=== PATIENT | female | born 1970 | race Caucasian/White ===

== ENCOUNTER 2021-07-20 08:12 | Inpatient (IN) ==
--- NOTE | 2021-06-23 15:20 | PAT Medication Instructions ---
Medication Instructions Date of Service June 23, 2021 Home Medications acetaminophen 325 mg tablet (Tylenol) 325 - 650 mg PO QID PRN albuterol sulfate 0.63 mg/3 mL solution for nebulization 0.63 mg INHALATION Q4H PRN albuterol sulfate 90 mcg/actuation aerosol inhaler (Ventolin HFA) 2 puff INHALATION Q6H PRN citalopram 40 mg tablet (Celexa) 40 mg PO HS clonazepam 1 mg tablet (Klonopin) 1 mg PO TID dicyclomine 20 mg tablet 40 mg PO Q6H PRN lansoprazole 30 mg capsule,delayed release (Prevacid) 30 mg PO DAILY PRN lidocaine 3 % topical cream 1 applic TOPICAL BID PRN lurasidone 60 mg tablet (Latuda) 60 mg PO HS temazepam 30 mg capsule 30 mg PO HS STOP taking 24 hours before surgery lidocaine 3 % topical cream 1 applic TOPICAL BID PRN DO NOT take the morning of surgery dicyclomine 20 mg tablet 40 mg PO Q6H PRN Take morning of surgery With a small sip of water, OTHERWISE NOTHING TO EAT OR DRINK AFTER MIDNIGHT: acetaminophen 325 mg tablet (Tylenol) 325 - 650 mg PO QID PRN (okay to take up to 4 hours prior to surgery if needed) albuterol sulfate 0.63 mg/3 mL solution for nebulization 0.63 mg INHALATION Q4H PRN (if needed) albuterol sulfate 90 mcg/actuation aerosol inhaler (Ventolin HFA) 2 puff INHALATION Q6H PRN (use if needed; please bring rescue inhaler with you to hospital day of surgery if possible) clonazepam 1 mg tablet (Klonopin) 1 mg PO TID lansoprazole 30 mg capsule,delayed release (Prevacid) 30 mg PO DAILY PRN (if needed) Take evening before surgery acetaminophen 325 mg tablet (Tylenol) 325 - 650 mg PO QID PRN (if needed) albuterol sulfate 0.63 mg/3 mL solution for nebulization 0.63 mg INHALATION Q4H PRN (if needed) albuterol sulfate 90 mcg/actuation aerosol inhaler (Ventolin HFA) 2 puff INHALATION Q6H PRN (if needed) citalopram 40 mg tablet (Celexa) 40 mg PO HS clonazepam 1 mg tablet (Klonopin) 1 mg PO TID dicyclomine 20 mg tablet 40 mg PO Q6H PRN (if needed) lansoprazole 30 mg capsule,delayed release (Prevacid) 30 mg PO DAILY PRN (if needed) lurasidone 60 mg tablet (Latuda) 60 mg PO HS temazepam 30 mg capsule 30 mg PO HS Other Notes If you have any questions please call us at [phone] or [phone] or [phone] or [phone]
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
--- NOTE | 2021-07-20 07:35 | History & Physical Bridge Note ---
Date of Service July 20, 2021 History & Physical Bridge Note I have examined the patient, reviewed the History & Physical and in the interval since the performance of the History & Physical I have noted the following changes of clinical significance: no changes noted
--- NOTE | 2021-07-20 07:36 | History & Physical Report ---
Date of Service July 20, 2021 Assessment & Plan (1) Neurogenic claudication due to lumbar spinal stenosis: Plan: L4-L5 decompression fusion, L5-S1 hardware removal History of Present Illness Chief Complaint: Back and bilateral leg pain back and bilateral leg pain Primary Care Provider: NO PCP This is a 50-year-old female known to myself presents with marked decline in status. The failing course of nonoperative care is here for surgical intervention. Allergies Allergy/AdvReac Type Severity Reaction Status Date / Time latex Allergy Severe Anaphylaxis Verified 06/23/21 13:23 erythromycin base Allergy Intermediate Hives Verified 06/23/21 13:24 Penicillins Allergy Intermediate Hives Verified 06/23/21 13:23 Sulfa (Sulfonamide Allergy Intermediate Hives Verified 06/23/21 13:23 Antibiotics) adhesive Allergy Mild SKIN Verified 06/23/21 13:23 REACTION NSAIDS (Non-Steroidal Allergy Mild TOLD NOT Verified 06/23/21 13:23 Anti-Inflamma TO TAKE D/T CELIAC NARCOTICS AdvReac Intermediate HYPERSENSITIVE Uncoded 07/06/21 12:44 TO NARCOTICS Home Medications Medication Instructions Recorded Confirmed Type acetaminophen 325 mg tablet 325 - 650 mg PO QID PRN 06/23/21 06/23/21 History (Tylenol) albuterol sulfate 0.63 mg/3 mL 0.63 mg INHALATION Q4H PRN 06/23/21 06/23/21 History solution for nebulization albuterol sulfate 90 mcg/actuation 2 puff INHALATION Q6H PRN 06/23/21 06/23/21 History aerosol inhaler (Ventolin HFA) citalopram 40 mg tablet (Celexa) 40 mg PO HS 06/23/21 06/23/21 History clonazepam 1 mg tablet (Klonopin) 1 mg PO TID 06/23/21 06/23/21 History dicyclomine 20 mg tablet 40 mg PO Q6H PRN 06/23/21 06/23/21 History lansoprazole 30 mg capsule,delayed 30 mg PO DAILY PRN 06/23/21 06/23/21 History release (Prevacid) lidocaine 3 % topical cream 1 applic TOPICAL BID PRN 06/23/21 06/23/21 History lurasidone 60 mg tablet (Latuda) 60 mg PO HS 06/23/21 06/23/21 History temazepam 30 mg capsule 30 mg PO HS 06/23/21 06/23/21 History Trileptal 150 mg PO QAM 07/06/21 07/06/21 History Past Med/Surg History Medical History (Updated 07/20/21 @ 07:36 by Jevon Plascencia, ) Anxiety and depression Asthma stable per pt, last rescue inhaler use 1 week ago Bipolar disorder Celiac disease Degenerative disc disease cervical, thoracic and lumbar per pt Deviated septum GERD (gastroesophageal reflux disease) persistent symptoms despite medication of heartburn and sensation of reflux, denies choking or coughing History of cervical cancer s/p hysterectomy 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, none since 2004 History of kidney stones History of rectal cancer surgery History of seizure 2009 SEPSIS (C-DIFF INFECTION) Hx of cervical cancer Hx of Clostridium difficile infection 2009 Hx of endometriosis Hx of pancreatitis several yrs ago IBS (irritable bowel syndrome) Interstitial cystitis Periodontal disease upper dentures-glued in per pt Post traumatic stress disorder Rheumatoid arthritis follows with PCP Spinal stenosis Temporomandibular joint disorder clicking and locking requiring surgical intervention, chronically shifted to the right per pt Surgical History (Updated 07/06/21 @ 12:03 by Greta Mead PA-C) H/O eye surgery GLASS REMOVED FROM EYE H/O knee surgery LEFT KNEE X 2 RT KNEE X 1 H/O oophorectomy History of appendectomy History of bowel resection History of breast biopsy BENIGN History of cholecystectomy History of colonoscopy History of cystoscopy STONE REMOVAL History of esophagogastroduodenoscopy (EGD) History of herniorrhaphy History of hysterectomy History of laparoscopy MULTIPLE TIMES FOR ENDOMETRIOSIS History of lithotripsy History of lumbar fusion History of mandibular surgery History of repair of ACL LEFT History of tooth extraction Family History (Updated 06/23/21 @ 13:40 by Krystin Hankins RN) Brother Family hx of colon cancer Other No family history of adverse response to anesthesia Social History Smoking Status: Current every day smoker Cigarettes Per Day: 10 CIG DAILY; Second Hand Exposure: Yes ( SMOKES); Hx Alcohol Use: Yes Preferred Language: Norwegian [employer] Land[employer] Technician Required: No Beliefs That Will Affect Care: None Current Living Situation: Spouse Feels Safe at Home: Yes Assistive Devices: Denture - Upper, Glasses and Nebulizer Physical Exam Physical Exam: Patient is alert and oriented Heart regular rate and rhythm Lungs clear
[~2021-07-20 08:12] MED LIST: ACETAMINOPHEN 500 MG TAB PO SCH; BUPIVACAINE 0.5 % 5 MG/1 ML MPF 30ML VIAL ONE; CLINDAMYCIN 600 MG/54 ML BAG IV SCH; CeleBREX 200 MG CAP PO SCH; DEXAMETHASONE SOD INJ 4 MG/ML VIAL ONE; EPINEPHrine INJ 1 MG/ML AMP ONE; GABAPENTIN 900 MG DOSE PO SCH; KETAMINE 50 MG/5 ML SYRINGE ONE; LR 15ML/HR IV SCH; MIDAZOLAM HCL 1 MG/ML 2ML VIAL ONE; ONDANSETRON INJ 2 MG/ML 2 ML VIAL ONE; ROCURONIUM BROMIDE 10 MG/ML 5 ML VIAL IV ONE; fentaNYL citrate 100 MCG/2 ML VIAL ONE
[2021-07-20] MEDS ORDERED: PROMETHAZINE HCL 12.5 MG in SODIUM CHLORIDE 0.9% 50 ML IV PRN ×2 (09:13→14:00)
[2021-07-20] MEDS ORDERED: ePHEDrine sulfate 50 MG/ML AMP IV PRN (09:13)
[2021-07-20] MEDS ORDERED: HYDROmorphone INJ 1 MG/ML SYRINGE IV PRN ×2 (09:13→14:00)
[2021-07-20] MEDS ORDERED: ONDANSETRON INJ 2 MG/ML 2 ML VIAL IV PRN ×2 (09:13→14:00)
[2021-07-20] MEDS ORDERED: ATROPINE SULFATE 0.1 MG/ML 10ML SYR IV PRN (09:13)
[2021-07-20] MEDS ORDERED: MIDAZOLAM HCL 1 MG/ML 2ML VIAL ONE (09:34)
[2021-07-20] MEDS ORDERED: FAMOTIDINE/PF 20 MG/2 ML VIAL IV ONE (09:52)
[2021-07-20] MEDS ORDERED: FLOSEAL HEMOSTATIC MATRIX 10ML TOP ONE (10:13)
[2021-07-20] MEDS ORDERED: HYDROmorphone INJ 2 MG/ML SYR/VIAL ONE (10:43)
[2021-07-20] MEDS ORDERED: NEOSTIGMINE METHYLSULFATE 1 MG/ML 10ML VIAL ONE (11:01)
[2021-07-20] MEDS ORDERED: GLYCOPYRROLATE 0.2 MG/ML VIAL ONE (11:01)
[2021-07-20] MEDS ORDERED: SURGICEL ABSORB HEMOSTAT 2IN X 14IN TOP ONE (11:02)
--- NOTE | 2021-07-20 11:12 | Operative Report ---
Post Operative Report Pre & Post Diagnosis Operation Date: 07/20/21 09:10 Pre-Op Diagnosis: Radiculopathy, Lumbar Region Post-Op Diagnosis: Radiculopathy, Lumbar Region I identified the patient and participated in the time-out.: Yes Procedure Operation Date: 07/20/21 09:10 Actual Procedures #1 removal of posterior instrumentation L5-S1. #2 exploration of fusion L5-S1. #3 lumbar decompression with bilateral medial facetectomies and foraminotomies L3-L4 L4-5. #4 posterior spinal fusion L4-5. #5 placement posterior instrumentation L4-L5. #6 interbody fusion L4-L5. #7 placement of peek cage 14 x 22 mm at L4-L5. #8 placement of locally harvested morselized autograft in the posterior lateral gutters. #9 placement infuse collagen sponge bone mass graft in the posterior gutters and I factor in the interbody space. Surgeon Jevon Plascencia, DO Quill Machine Tender Radha Delacruz Estimated Blood Loss 150 Findings See Below The patient is 5 foot 1 inches tall weighing over 86 kg with a BMI in excess of 36. The patient's body habitus did contribute to significant technical difficulty required deepest retractors longus instruments in order to perform her procedure. This at least 50% increase to the operative time. Specimens None Indications This is a 50-year-old female who presents above-mentioned diagnosis after failed course of nonoperative care is here for the above-mentioned procedure. Description of Procedure Patient was met with identified informed consent obtained. Patient was then taken to the operative suite underwent ablation placed in a prone position the Mk table atop the Deni frame. All bony prominences well-padded eyes inspected to ensure no external pressure placed upon the. This point the lumbar spine was prepped and draped in normal sterile fashion. Sharp dissection with the assistance of Bovie cautery was performed down to and exposing the lamina and transverse processes of L4 and instrumentation at L5 5 and S1 bilaterally. And then proceeded move the hardware bilaterally explore the fusion mass noting it to be mature and intact. Then performed a complete laminectomy of L4 partial laminectomy of L3 including bilateral medial facetectomies and foraminotomies addressing severe spinal stenosis. Pedicle screws were then placed in L4 and L5 bilaterally with assistance of fluoroscopy and the properly sized nathaniel placed. By way of a transforaminal approach on the right a complete discectomy of L4-5 was performed endplates curetted to subcortical bleeding bone and a 14 x 22 mm peek cage filled with I factor tapped in position. The rods were then compressed locked into final position bilaterally. The transverse processes of L4 and L5 burred to subcortical bleeding bone and infuse collagen sponge, master graft locally harvested morselized autograft placed in the posterior gutters. 15 round ROSE drain inserted. The incision was then closed with 1 Vicryl in the fascia 2-0 Vicryl subcutaneously and 4 Monocryl for final skin closure. Steri- Strip sterile dressings placed. Patient waken taken PACU stable condition. Please note spinal cord monitoring was utilized at the procedure no changes noted. Lastly Radha Delacruz was present at the entire surgery involved the patient positioning complex portions of the surgery and final skin closure. I attest to the content of the Intraoperative Record and any orders documented therein. Any exceptions are noted below.
--- NOTE | 2021-07-20 11:29 | Fluoroscopy Report ---
FL lumbar spine 2-3V CLINICAL HISTORY: L4-L5 DECOMPRESSION COMPARISON STUDY: Lumbar spine fluoroscopic images August 07, 2011. FLUOROSCOPY TIME: 12 seconds. FLUOROSCOPIC IMAGES: 3 FINDINGS: The previous hardware L5-S1 was removed. L5-S1 discectomy is noted. Interval L4-L5 discecto my, posterior decompression and bilateral pedicle screw fusion is noted. Hardware is intact. The surg miquel was aware of the linear radiodensity within the operative bed. IMPRESSION: Fluoroscopy provided during hardware removal and interval L4-L5 discectomy, posterior de compression and bilateral pedicle screw fusion. ACT 112: Negative or not required by law. Electronically signed by: Van Daly M.D. 07/20/2021 11:28 AM
[2021-07-20] MEDS: fentaNYL citrate 100 MCG/2 ML VIAL IV PRN ×2 (11:43→12:25)
--- NOTE | 2021-07-20 13:06 | Anesthesiology Progress Note ---
Date of Service July 20, 2021 Anesthesia Post Procedure Vital Signs Vital Signs: Temp Pulse Pulse Resp BP Pulse Ox 07/20/21 13:00 68 12 101/63 96 07/20/21 12:50 36.5 C 69 14 105/61 97 07/20/21 12:40 90 14 111/84 97 07/20/21 12:30 69 12 112/57 L 92 07/20/21 12:20 73 15 112/76 98 07/20/21 12:10 69 15 119/65 100 07/20/21 12:00 69 18 127/66 99 07/20/21 11:50 75 15 121/65 98 07/20/21 11:40 77 16 127/75 100 07/20/21 11:30 36.1 C L 93 H 17 126/75 100 07/20/21 08:35 36.9 C 89 20 139/90 98 Pain Intensity Medial Back: Pain Intensity: 7 Transfer of Care Handoff Completed per policy Notes Mental Status: alert / awake / arousable and participated in evaluation Patient Amnestic to Procedure: Yes Nausea / Vomiting: adequately controlled Pain: adequately controlled Airway Patency, RR, SpO2: stable & adequate BP & HR: stable & adequate Hydration State: stable & adequate Anesthetic Complications: no major complications apparent and Pt Satisfied with anesthetic care
[2021-07-20] MEDS ORDERED: LORazepam 0.5 MG TAB PO PRN (14:00)
[2021-07-20] MEDS ORDERED: DICYCLOMINE HCL 20 MG TAB PO PRN (14:00)
[2021-07-20] MEDS ORDERED: LORazepam 0.5 MG/1 ML VIAL IV PRN (14:00)
[2021-07-20] MEDS ORDERED: ACETAMINOPHEN 1,000 MG/100 ML VIAL IV PRN (14:00)
[2021-07-20] MEDS ORDERED: MAGNESIUM HYDROXIDE SUSP 30 ML UDC PO PRN (14:00)
[2021-07-20] MEDS ORDERED: DO NOT ADMINISTER FLU VACCINE PRN (14:00)
[2021-07-20] MEDS ORDERED: hydrOXYzine HCl 25 MG TAB PO PRN (14:00)
[2021-07-20] MEDS ORDERED: ALBUTEROL HFA 8 GM INHALER INH PRN (14:00)
[2021-07-20] MEDS ORDERED: bisacodyL 10 MG SUPP PR PRN (14:00)
[2021-07-20] MEDS ORDERED: traMADol HCL 50 MG TABLET PO PRN (14:00)
[2021-07-20] MEDS ORDERED: ALUMINUM/MAGNESIUM SUSP 30 ML UDC PO PRN (14:00)
[2021-07-20] MEDS ORDERED: DO NOT ADMINISTER PNEUMOCOCCAL VACCINE PRN (14:00)
[2021-07-20] MEDS ORDERED: METOCLOPRAMIDE HCL INJ 5 MG/ML 2 ML VIAL IV PRN (14:00)
[2021-07-20] MEDS ORDERED: FAMOTIDINE 20 MG TAB PO PRN (14:00)
[2021-07-20] MEDS ORDERED: NALOXONE HCL 0.4 MG/1 ML VIAL/CARP IV PRN (14:00)
[2021-07-20] MEDS ORDERED: SOD PHOSPHATE/SOD BIPHOSPHATE ENEMA 132 ML BTL PR PRN (14:00)
[2021-07-20] MEDS ORDERED: ALBUTEROL 0.5% NEB SOLN 2.5 MG/0.5 ML VIAL INH PRN (14:38)
[2021-07-20] MEDS ORDERED: LIDOCAINE 4% CREAM 15 GM TUBE EXT PRN (14:39)
[2021-07-20] MEDS: clonazePAM 1 MG TAB PO SCH ×2 (14:45→20:25)
--- NOTE | 2021-07-20 14:45 | Hospitalist Consultation ---
Date of Consultation July 20, 2021 Assessment & Plan (1) Neurogenic claudication due to lumbar spinal stenosis: s/p L4-5 decompression and fusion with removal of hardware of previous surgery L5-S1 (2) Asthma: Patient's asthma is stable we will continue as needed albuterol (3) Bipolar disorder: For her bipolar disorder she takes Alexza 40 at bedtime clonazepam 1 3 times daily we will use this with caution in the perioperative period Latuda 60 at bedtime medazepam 30 at bedtime and Trileptal 150 every morning. There is some notation that years ago in the septic episode she may have had a seizure bu t this has not been corroborated to continue with seizure disorder as part of her medical problems (4) GERD (gastroesophageal reflux disease): Patient continues on Prevacid for PPI (5) DVT prophylaxis: DVT preventions were SCDs History of Present Illness Attending Physician: Jevon Plascencia, History of Present Illness 80-year-old female had back surgery due to intractable back pain L4-[address] Plascencia on 07/20/2021. Previously having L5-S1 surgery and she had hardware removed and that site for a more comprehensive surgical configuration. She is given medical clearance by primary care physician she typically has some challenges with mental health issues takes medications for asthma. Allergies Allergy/AdvReac Type Severity Reaction Status Date / Time latex Allergy Severe Anaphylaxis Verified 07/20/21 08:31 erythromycin base Allergy Intermediate Hives Verified 07/20/21 08:31 Penicillins Allergy Intermediate Hives Verified 07/20/21 08:31 Sulfa (Sulfonamide Allergy Intermediate Hives Verified 07/20/21 08:31 Antibiotics) adhesive Allergy Mild SKIN Verified 07/20/21 08:31 REACTION NSAIDS (Non-Steroidal Allergy Mild TOLD NOT Verified 07/20/21 08:31 Anti-Inflamma TO TAKE D/T CELIAC NARCOTICS AdvReac Intermediate HYPERSENSITIVE Uncoded 07/20/21 08:31 TO NARCOTICS Home Medications Medication Instructions Recorded Confirmed Type acetaminophen 325 mg tablet 325 - 650 mg PO QID PRN 06/23/21 07/20/21 History (Tylenol) albuterol sulfate 0.63 mg/3 mL 0.63 mg INHALATION Q4H PRN 06/23/21 07/20/21 History solution for nebulization albuterol sulfate 90 mcg/actuation 2 puff INHALATION Q6H PRN 06/23/21 07/20/21 History aerosol inhaler (Ventolin HFA) citalopram 40 mg tablet (Celexa) 40 mg PO HS 06/23/21 07/20/21 History clonazepam 1 mg tablet (Klonopin) 1 mg PO TID 06/23/21 07/20/21 History dicyclomine 20 mg tablet 40 mg PO Q6H PRN 06/23/21 07/20/21 History lansoprazole 30 mg capsule,delayed 30 mg PO DAILY PRN 06/23/21 07/20/21 History release (Prevacid) lidocaine 3 % topical cream 1 applic TOPICAL BID PRN 06/23/21 07/20/21 History lurasidone 60 mg tablet (Latuda) 60 mg PO HS 06/23/21 07/20/21 History temazepam 30 mg capsule 30 mg PO HS 06/23/21 07/20/21 History Trileptal 150 mg PO QAM 07/06/21 07/20/21 History Patient History Medical History (Updated 07/20/21 @ 14:44 by Antonino Cruz MD) Anxiety and depression Asthma stable per pt, last rescue inhaler use 1 week ago Bipolar disorder Celiac disease Degenerative disc disease cervical, thoracic and lumbar per pt Deviated septum GERD (gastroesophageal reflux disease) persistent symptoms despite medication of heartburn and sensation of reflux, denies choking or coughing History of cervical cancer s/p hysterectomy 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, none since 2004 History of kidney stones History of rectal cancer surgery History of seizure 2009 SEPSIS (C-DIFF INFECTION) Hx of cervical cancer Hx of Clostridium difficile infection 2009 Hx of endometriosis Hx of pancreatitis several yrs ago IBS (irritable bowel syndrome) Interstitial cystitis Periodontal disease upper dentures-glued in per pt Post traumatic stress disorder Rheumatoid arthritis follows with PCP Spinal stenosis Temporomandibular joint disorder clicking and locking requiring surgical intervention, chronically shifted to the right per pt Surgical History H/O eye surgery GLASS REMOVED FROM EYE H/O knee surgery LEFT KNEE X 2 RT KNEE X 1 H/O oophorectomy History of appendectomy History of bowel resection History of breast biopsy BENIGN History of cholecystectomy History of colonoscopy History of cystoscopy STONE REMOVAL History of esophagogastroduodenoscopy (EGD) History of herniorrhaphy History of hysterectomy History of laparoscopy MULTIPLE TIMES FOR ENDOMETRIOSIS History of lithotripsy History of lumbar fusion History of mandibular surgery History of repair of ACL LEFT History of tooth extraction Family History (Updated 06/23/21 @ 13:40 by Krystin Hankins RN) Brother Family hx of colon cancer Other No family history of adverse response to anesthesia Social History Smoking Status: Current every day smoker Cigarettes Per Day: 10 CIG DAILY; Second Hand Exposure: Yes ( SMOKES); Do You Dip or Chew Tobacco: No; Hx Alcohol Use: Yes Preferred Language: [employer] [employer] Required: No Beliefs That Will Affect Care: None Current Living Situation: Spouse Feels Safe at Home: Yes Safety Concerns: Feels Safe At This Time Assistive Devices: Denture - Upper Review of Systems Review of Systems: Mild distress and fatigue no headache, no visual changes no speech or swallowing issues no chest pain, pressure or palpitations no shortness of breath, cough or wheezes no abdominal pain, nausea or vomiting, diarrhea or constipation no dysuria, hematuria or frequency no focal joint pain or swelling no back pain, CVA tenderness or radicular pain no bruising, bleeding or rashes no focal signs of weakness or numbness or altered sensation no complaints of anxiety or depression.. Physical Exam Physical Exam: The patient appeared well nourished and normally developed. Vital signs as documented. Head exam is normocephalic atraumatic Neck is without JVD, thyromegaly, or carotid bruits. Lungs are clear to auscultation, no focal loss of breath sounds Cardiac exam, Rhythm is regular.. No murmurs, rubs or gallops. Abdominal exam reveals normal bowel sounds, soft non tender, no masses Extremities are nonedematous and both pedal pulses are present Neurologic exam is alert and oriented, no focal loss of strength or sensation Skin is without bruises or rashes Psychologically is without concerns for anxiety or depression.. Results & Data Results & Data ([facility]) Vital Signs (Past 12 Hours) Vital Signs Temp Pulse Pulse Resp BP Pulse Ox 07/20/21 14:10 98.2 F 74 16 103/64 98 07/20/21 13:35 98.6 F 75 14 131/79 100 07/20/21 13:25 97.5 F L 72 12 110/63 95 07/20/21 13:10 97.5 F L 86 18 117/69 99 07/20/21 13:00 68 12 101/63 96 07/20/21 12:50 97.7 F 69 14 105/61 97 07/20/21 12:40 90 14 111/84 97 07/20/21 12:30 69 12 112/57 L 92 07/20/21 12:20 73 15 112/76 98 07/20/21 12:10 69 15 119/65 100 07/20/21 12:00 69 18 127/66 99 07/20/21 11:50 75 15 121/65 98 07/20/21 11:40 77 16 127/75 100 07/20/21 11:30 97.0 F L 93 H 17 126/75 100 07/20/21 08:35 98.4 F 89 20 139/90 98 PG Care Time/CCT Total # of Minutes Spent Total Time Spent with Patient: Total time spent is greater than 50% in coordination of care (as documented) at patient's floor/unit and/or counseling patient: Coding Level of Care Code 78218 Inpt Consult Level 3 Diagnoses Asthma J45.909 Bipolar disorder F31.9 Neurogenic claudication due to lumbar spinal stenosis M48.062 GERD (gastroesophageal reflux disease) K21.9 DVT prophylaxis Z29.9
[2021-07-20] MEDS: LACTATED RINGER'S 1,000 ML IV SCH (15:50)
[2021-07-20] MEDS: diphenhydrAMINE Capsule 25 MG CAP PO PRN (18:29)
[2021-07-20] MEDS: ONDANSETRON 4 MG OD TAB PO PRN (18:43)
[2021-07-20] MEDS: CLINDAMYCIN 600 MG in DEXTROSE 5% 50 ML IV SCH (18:46)
[2021-07-20] MEDS: HYDROmorphone INJ 0.5 MG/0.5 ML SYR IV PRN (18:49)
[2021-07-20] MEDS: ACETAMINOPHEN 500 MG TAB PO PRN (20:18)
[2021-07-20] MEDS: CITALOPRAM 40 MG TAB PO SCH (20:20)
[2021-07-20] MEDS: LANSOPRAZOLE 30 MG SOLTAB PO PRN (20:25)
[2021-07-20] MEDS: DOCUSATE SODIUM/SENNA 50/8.6MG TAB PO SCH (20:26)
[2021-07-20] MEDS: TEMAZEPAM 15 MG CAPSULE PO SCH (20:28)
[2021-07-21] MEDS: LACTATED RINGER'S 1,000 ML IV SCH (02:06)
[2021-07-21] MEDS: CLINDAMYCIN 600 MG in DEXTROSE 5% 50 ML IV SCH (02:07)
[2021-07-21] MEDS: HYDROmorphone INJ 0.5 MG/0.5 ML SYR IV PRN (05:42)
[2021-07-21] MEDS: POLYETHYLENE (MIRALAX) 17 GM PACK PO SCH ×5 (05:42→23:57)
[2021-07-21] MEDS: ONDANSETRON 4 MG OD TAB PO PRN ×2 (05:48→12:17)
[2021-07-21 06:43] LABS: Eosinophils # (auto) 0.01 K/uL (0-0.5); Eosinophils % (auto) 0.1 %; Hematocrit (blood only) 37.1 % (37-47); Hemoglobin 11.7 g/dL (12.0-16.0); Immature Granulocytes # (auto) 0.02 K/uL (0.00-0.02); Immature Granulocytes % (auto) 0.2 %; Lymphocytes # (auto) 0.76 K/uL (1.2-3.4); Mean Corpuscular Hemoglobin 28.3 pg (25-34); Mean Corpuscular Hgb Conc 31.5 g/dL (32-36); Mean Corpuscular Volume 89.6 fL (80-100); Mean Platelet Volume 9.5 fL (7.4-10.4); Monocytes # (auto) 0.78 K/uL (0.11-0.59); Monocytes % (auto) 8.2 %; Neutrophils % (auto) 83.5 %; Platelet Count 299 K/uL (130-400); RDW Coefficient of Variation 14.1 % (11.5-14.5); RDW Standard Deviation 46.7 fL (36.4-46.3); Red Blood Count 4.14 M/uL (4.2-5.4); White Blood Count 9.47 K/uL (4.8-10.8)
[2021-07-21 07:07] LABS: BUN Creatinine Ratio 10.7 (10-20); Calcium 8.7 mg/dl (8.5-10.1); Creatinine Clr Calc Pharmacy 89.6 ml/min; Est GFR (African American) 107.7 ml/min; Est GFR (Non-African American) 92.9 ml/min; Potassium 4.3 mmol/L (3.5-5.1)
--- NOTE | 2021-07-21 07:34 | Hospitalist Progress Note ---
Date of Service July 21, 2021 Assessment & Plan (1) Neurogenic claudication due to lumbar spinal stenosis: Plan: POD #1 - s/p L4-5 decompression and fusion with removal of hardware of previous surgery L5-S1. Patient is going to start PT today. (2) Asthma: Plan: Patient's asthma is stable we will continue as needed albuterol No complaints of shortness of breath or wheezing today. (3) Bipolar disorder: Plan: For her bipolar disorder she takes Alexza 40 at bedtime clonazepam 1mg 3 times daily we will use this with caution in the perioperative period. Latuda 60 at bedtime. Temazepam 30 at bedtime and Trileptal 150 every morning. There is some notation that years ago in the septic episode she may have had a seizure but this has not been corroborated to continue with seizure disorder as part of her medical problems (4) GERD (gastroesophageal reflux disease): Plan: Patient continues on Prevacid for PPI (5) DVT prophylaxis: Plan: DVT preventions are SCDs Plan: Disposition: patient is hopeful to be discharged over the weekend. Discharge per orthopedics. Admission and Anticipated Discharge Date Admission Date: July 20, 2021 Subjective 50 [address] by Dr[address] Plascencia for s/p L4-5 decompression and fusion with removal of hardware of previous surgery L5-S1. The patient is doing well this morning. Minimal back pain. She still has a Mackay. Started liquid diet yesterday. No chest pain or shortness of breath. No abdominal pain. No BM yet. Review of Systems Constitutional: no fever Respiratory: no cough and no dyspnea on exertion Cardiovascular: no chest pain Gastrointestinal: no abdominal pain Musculoskeletal: as per Subjective / HPI Physical Exam Constitutional: WD/WN, vitals as above Eyes: PERRL, conjunctivae normal, anicteric sclerae Respiratory: normal respiratory effort, lungs clear to auscultation Cardiovascular: RRR, no murmur, no edema Gastrointestinal (Abdomen): Inspection/Auscultation: abdomen normal to inspection and normal bowel sounds; abdomen not distended Percussion/Palpation: abdomen nontender Results & Data Results & Data ([facility]) Vital Signs (Past 12 Hours) Vital Signs Temp Pulse Resp BP Pulse Ox 07/21/21 02:26 97.9 F 61 16 103/64 99 07/20/21 23:09 98.2 F 101 H 18 113/68 99 PG Care Time/CCT Total # of Minutes Spent Total Time Spent with Patient: Total time spent is greater than 50% in coordination of care (as documented) at patient's floor/unit and/or counseling patient: Coding Level of Care Code 96440 Inpt Consult Level 2 Diagnoses Neurogenic claudication due to lumbar spinal stenosis M48.062 Asthma J45.909 Bipolar disorder F31.9 GERD (gastroesophageal reflux disease) K21.9 DVT prophylaxis Z29.9
[2021-07-21] MEDS: OXcarbazepine 150 MG TABLET PO SCH (09:34)
[2021-07-21] MEDS: dexAMETHasone 6 MG in SYRINGE 0 ML IV SCH (09:35)
[2021-07-21] MEDS: clonazePAM 1 MG TAB PO SCH ×3 (09:42→21:24)
[2021-07-21] MEDS: ACETAMINOPHEN 500 MG TAB PO PRN ×2 (09:43→21:25)
[2021-07-21] MEDS: diphenhydrAMINE Capsule 25 MG CAP PO PRN (11:38)
[2021-07-21] MEDS: oxyCODONE HCL IR 5 MG TAB (IMMEDIATE RELEASE) PO PRN ×2 (12:16→18:36)
--- NOTE | 2021-07-21 13:23 | Orthopedic Progress Note ---
Date of Service July 21, 2021 Assessment & Plan (1) Neurogenic claudication due to lumbar spinal stenosis: Plan: At this time continue physical therapy monitor her ROSE output anticipate discharge home this weekend. Admission and Anticipated Discharge Date Admission Date: July 20, 2021 Subjective Back pain controlled leg symptoms markedly improved Physical Exam Physical Exam: Patient is in the chair at the bedside. Is good strength testing. Appears comfortable. Results & Data ([facility]) Vital Signs (Past 12 Hours) Vital Signs Temp Pulse Pulse Resp BP Pulse Ox 07/21/21 11:30 36.4 C L 94 H 14 130/80 96 07/21/21 08:30 36.9 C 91 H 18 130/80 95 07/21/21 02:26 36.6 C 61 16 103/64 99
[2021-07-21] MEDS: DOCUSATE SODIUM/SENNA 50/8.6MG TAB PO SCH (21:24)
[2021-07-21] MEDS: CITALOPRAM 40 MG TAB PO SCH (21:24)
[2021-07-21] MEDS: LANSOPRAZOLE 30 MG SOLTAB PO PRN (21:25)
[2021-07-21] MEDS: TEMAZEPAM 15 MG CAPSULE PO SCH (21:32)
[2021-07-22] MEDS: ONDANSETRON 4 MG OD TAB PO PRN (04:17)
[2021-07-22] MEDS: POLYETHYLENE (MIRALAX) 17 GM PACK PO SCH (06:18)
--- NOTE | 2021-07-22 08:35 | Discharge Summary ---
Date of Service July 22, 2021 Admission HPI Per Admitting Provider This is a 50-year-old female known to myself presents with marked decline in status. The failing course of nonoperative care is here for surgical intervention. Discharge Data Consultations 07/20/21 14:00 Consult Hospitalist Routine Procedures Performed Operation Date: 07/20/21 09:10 Actual Procedures p L4-L5 Decompression and Fusion, Spinal Cord Monitoring(Not Applicable) - Jevon Plascencia DO s L5-S1 Hardware Removal(Not Applicable) - Jevon Plascencia DO Hospital Course (1) Neurogenic claudication due to lumbar spinal stenosis: Patient is a 50-year-old female with history physical examination and radiographic images consistent with spinal stenosis. For this reason she was brought to the operating room on 07/20/2021 and undergone a lumbar decompression at L4-5 with hardware removal L5-S1 and fusion at L4-5 as well. This performed by Dr. Plascencia under general anesthesia. She left the operating room with a ROSE drain Mackay in place and transferred to PACU in stable condition. She is brought to the orthopedic floor. She is placed on GI DVT prophylaxis. She was seen by physical therapy for ambulation and gait training. She is now ambulating independently and has met discharge criteria for home. She is to lift nothing heavier than 5 to 7 pounds. She should walk as comfort permits. She should not perform any full bending at the waist and should not drive. Pain medications have been provided. We will see her in the office in approximately 2 weeks or sooner if develops any increased pain, fever, chills, or drainage from the incision.
[2021-07-22] MEDS: clonazePAM 1 MG TAB PO SCH (08:40)
[2021-07-22] MEDS: dexAMETHasone 6 MG in SYRINGE 0 ML IV SCH (08:40)
[2021-07-22] MEDS: OXcarbazepine 150 MG TABLET PO SCH (08:41)
--- NOTE | 2021-07-22 11:49 | Hospitalist Progress Note ---
Date of Service July 22, 2021 Assessment & Plan (1) Neurogenic claudication due to lumbar spinal stenosis: Plan: S/p L4-L5 decompression and fusion with removal of prior L5/S1 hardware 07/20/2021 On day of discharge patient ambulating independently, with adequate pain control Eating/drinking day of discharge Primary management per surgical team, recommended to lift nothing more than 5- 7 pounds, walking as comfort permits, pain medications provided by primary team, follow-up to outpatient orthopedics (2) Asthma: Plan: Stable, no wheezing at discharge May continue albuterol as needed (3) Bipolar disorder: Plan: Stable at discharge Continue home citalopram 40 mg p.o. nightly, Latuda 60 mg p.o. at bedtime, T rileptal 150 mg p.o. every morning Home benzodiazepine dosing including clonazepam 1 mg 3 times daily as needed discussed with patient, and risk of using narcotic analgesia/benzos/muscle relaxants together and their effect on breathing to which the patient expressed understanding (4) GERD (gastroesophageal reflux disease): Plan: Continue home Prevacid (5) DVT prophylaxis: Plan: , DVT preventions are SCDs, no evidence of DVT during admission Plan: Disposition: patient is hopeful to be discharged over the weekend. Discharge per orthopedics. Admission and Anticipated Discharge Date Admission Date: July 20, 2021 Subjective Patient seen at bedside, reports that she feels well today and is ambulating independently. Has seen Ortho who recommended that she can return home today as is meeting discharge goals. No other acute concerns. Reports her pain is 4/10 in her back with pain medications, tolerable. Tolerating food well. No other questions/concerns. Review of Systems Review of Systems: Endorses 4/10 pain in back, otherwise 10 point review of systems negative Physical Exam Physical Exam: General: A&Ox3. NAD. Cooperative. HEENT: Atraumatic, normocephalic. Visual acuity/hearing grossly intact Pulm: CTAB A&P. -wheezes, -rales, -rhonchi. Symmetrical chest rise. No increase work of breathing. No respiratory distress. Cardiac: RRR, -mrg. Radial pulses intact and symmetrical. Abdominal: Nontender, nondistended, soft. BS present. Extremities: Able to ambulate independently in the room, moves all extremities equally. Results & Data Results & Data ([facility]) Vital Signs (Past 12 Hours) Vital Signs Temp Pulse Resp BP Pulse Ox 07/22/21 07:34 36.9 C 88 16 126/72 94 PG Care Time/CCT Total # of Minutes Spent Total Time Spent with Patient: Total time spent is greater than 50% in coordination of care (as documented) at patient's floor/unit and/or counseling patient: Coding Level of Care Code 77424 Subseq Hosp Care Lvl 2 Diagnoses Neurogenic claudication due to lumbar spinal stenosis M48.062 Asthma J45.909 Bipolar disorder F31.9 GERD (gastroesophageal reflux disease) K21.9 DVT prophylaxis Z29.9
== END 2021-07-22 11:46 | disposition home or self-care (01) | DRG 455 ==
LOC: ASU 08:12 → SUATTDRO 11:15 → 3E 11:15